=== PATIENT | female | born 1955 | race Caucasian/White ===

== ENCOUNTER 2018-06-22 16:15 | Observation (INO) ==
[2018-06-22] MEDS ORDERED: Morphine Sulfate Inj 2 MG/ML Vial IV.PUSH ONE (16:59)
[2018-06-22] MEDS ORDERED: Sod Chloride 0.9% Inj 1,000 ML IV.SIG SCH (17:00)
[2018-06-22] MEDS ORDERED: Acetaminophen 500 MG Tablet PO ONE (17:07)
--- NOTE | 2018-06-22 17:15 | ED ---
HPI General Chief Complaint: Fever Stated Complaint: fever/cancer pt Time Seen by Provider: 06/22/18 16:56 Source: patient Mode of arrival: ambulatory Limitations: no limitations History of Present Illness HPI Narrative: 63-year-old female patient with history of breast cancer status post mastectomy currently on chemotherapy with Dr. Small, presents to the ER today because she has not been feeling well, intermittent vomiting, was treated for dehydration about 5 days ago, here again because of a few days of left lower quadrant abdominal pains which she currently measures at a 5 out of 10, states it was a 10 out of 10 earlier. She denies any diarrhea, but also has been running fevers. She apparently was evaluated by [facility] yesterday, and had a endoscopy done by Dr. Levy last week, did not show any signs of acute processes. She was sent in by her physicians after trying a few over-the- counter outpatient medications for pain for further evaluation especially for fevers and possible neutropenia. Related Data Home Medications Medication Instructions Recorded Confirmed Gas-X 10 mg PO DIRECTED PRN 06/22/18 06/22/18 Librax (with clidinium) 1 tab PO ONCE PRN 06/22/18 06/22/18 Allergies Allergy/AdvReac Type Severity Reaction Status Date / Time tramadol Allergy Severe Swelling Verified 06/22/18 16:51 of Lip/Tongue/Throat scallops Allergy Intermediate N/V Verified 06/22/18 16:50 Review of Systems ROS: all other systems reviewed are negative [facility] Medical History Medical History Breast CA (Acute) Surgical History Surgical History History of left mastectomy (Acute) Social History Social History Substance History: No History of Abuse Smoking Status: Never smoker How Often Do You Have a Drink Containing Alcohol: Monthly or less Recent Travel in [facility] within the Last 8 Weeks: No Recent Out of Country Travel within the Last 8 Weeks: No Substance Abuse Detail Marijuana: Substance Use Status: Active Route Used Substance Abuse: By Mouth Substance Abuse Comment: Legally prescribed Immunization History Tetanus Immunization: >5 Years Hx Influenza Vaccine This Season: No Exam Narrative Exam Narrative: GENERAL: Well-developed middle age female patient currently in moderate distress. Awake and oriented 3. SKIN: Focused skin assessment warm/dry. HEAD: Atraumatic. Normocephalic. EYES: Pupils equal and round. No scleral icterus. No injection or drainage. ENT: No nasal bleeding or discharge. Mucous membranes pink and moist. NECK: Trachea midline. No JVD. CARDIOVASCULAR: Regular rate and rhythm. No murmur appreciated. RESPIRATORY: No accessory muscle use. Clear to auscultation. Breath sounds equal bilaterally. GASTROINTESTINAL: Abdomen soft, Left lower quadrant tenderness without guarding rebound, nondistended. Hepatic and splenic margins not palpable. MUSCULOSKELETAL: No obvious deformities. No clubbing. No cyanosis. No edema. NEUROLOGICAL: Awake and alert. No obvious cranial nerve deficits. Motor grossly within normal limits. Normal speech. PSYCHIATRIC: Appropriate mood and affect; insight and judgment normal. Course Initial Documented Vital Signs Temperature 100 F H 06/22/18 16:24 Pulse Rate 79 06/22/18 16:24 Respiratory Rate 20 06/22/18 16:24 Blood Pressure 122/58 L 06/22/18 16:24 Pulse Oximetry 97 06/22/18 16:24 Last Documented Vital Signs Temperature 100.6 F H 06/22/18 16:57 Pulse Rate 80 06/22/18 19:17 Respiratory Rate 18 06/22/18 19:17 Blood Pressure 104/53 L 06/22/18 19:17 Pulse Oximetry 97 06/22/18 19:17 Medical Decision Making MDM Narrative Medical decision making narrative: Patient is febrile in the ER. Her absolute neutrophil counts are fairly low. Patient has been given Tylenol, IV antibiotics after cultures were drawn. CAT scan was ordered for further evaluation of the abdominal pain. Metabolic panel is pending and CAT scan is pending. However, it is quite clear that she will need to be admitted. Case was discussed with Dr. Roberts for admission for further treatment. He states that the patient can be admitted to Dr. Lowe service. He will see the patient later on. Medical Screen Exam Complete: Yes Emergency Medical Condition: Yes Differential Diagnosis Differential Diagnosis: Sepsis versus neutropenic fever versus UTI versus pyelonephritis versus diverticulitis versus other acute intra-abdominal processes Lab Data Result diagrams: 06/22/18 17:40 Lab Results 06/22/18 06/22/18 06/22/18 Range/Units 17:40 17:40 17:50 WBC 1.1 L (4.0-11.0) th/mm3 RBC 2.87 L (4.00-5.30) mil/mm3 Hgb 8.8 L (11.6-15.3) gm/dL Hct 25.9 L (35.0-46.0) % MCV 90.1 (80.0-100.0) fL MCH 30.7 (27.0-34.0) pg MCHC 34.1 (32.0-36.0) % RDW 14.0 (11.6-17.2) % Plt Count 198 (150-450) th/mm3 MPV 9.1 (7.0-11.0) fL Prelim Diff (Auto) Slide review pending WBC Differential Manual diff final Seg Neuts % (Manual) 20 (16-70) % Band Neuts % (Manual) 3 (0-6) % Lymphocytes % (Manual) 40 (9-44) % Monocytes % (Manual) 28 H (0-8) % Eosinophils % (Manual) 1 (0-4) % Basophils % (Manual) 8 H (0-2) % Abs Neuts (Manual) 0.3 L* (1.8-7.7) th/mm3 Differential Comment . Platelet Estimate Normal (Normal) Platelet Morphology Normal (Normal) RBC Morphology Normal (Normal) Lactic Acid 1.0 (0.4-2.0) mmol/L Lipase 64 L (73-393) U/L Urine Color (Yellw/Straw) Urine Clarity (Clear) Urine pH (5.0-8.5) Ur Specific [place] (1.002-1.035) Urine Protein (Neg-Trace) mg/dL Urine Glucose (UA) (Negative) mg/dL Urine Ketones (Negative) mg/dL Urine Occult Blood (Negative) Urine Nitrate (Negative) Urine Bilirubin (Negative) Urine Urobilinogen (Less than 2) mg/dL Ur Leukocyte Esterase (Negative) Urine RBC (0-3) /hpf Urine WBC (0-5) /hpf Ur Squamous Epith Cells (0-5) /hpf Micro UA Comment Ur Microscopic Review Urine Culture Comments 06/22/18 Range/Units 18:45 WBC (4.0-11.0) th/mm3 RBC (4.00-5.30) mil/mm3 Hgb (11.6-15.3) gm/dL Hct (35.0-46.0) % MCV (80.0-100.0) fL MCH (27.0-34.0) pg MCHC (32.0-36.0) % RDW (11.6-17.2) % Plt Count (150-450) th/mm3 MPV (7.0-11.0) fL Prelim Diff (Auto) WBC Differential Seg Neuts % (Manual) (16-70) % Band Neuts % (Manual) (0-6) % Lymphocytes % (Manual) (9-44) % Monocytes % (Manual) (0-8) % Eosinophils % (Manual) (0-4) % Basophils % (Manual) (0-2) % Abs Neuts (Manual) (1.8-7.7) th/mm3 Differential Comment Platelet Estimate (Normal) Platelet Morphology (Normal) RBC Morphology (Normal) Lactic Acid (0.4-2.0) mmol/L Lipase (73-393) U/L Urine Color Straw (Yellw/Straw) Urine Clarity Clear (Clear) Urine pH 6.0 (5.0-8.5) Ur Specific [place] 1.003 (1.002-1.035) Urine Protein Negative (Neg-Trace) mg/dL Urine Glucose (UA) Negative (Negative) mg/dL Urine Ketones Negative (Negative) mg/dL Urine Occult Blood Small H (Negative) Urine Nitrate Negative (Negative) Urine Bilirubin Negative (Negative) Urine Urobilinogen Less than 2 (Less than 2) mg/dL Ur Leukocyte Esterase Negative (Negative) Urine RBC Less than 1 (0-3) /hpf Urine WBC 3 (0-5) /hpf Ur Squamous Epith Cells <1 (0-5) /hpf Micro UA Comment Culture not ind Ur Microscopic Review Not Reportable Urine Culture Comments Culture not ind Imaging Data Attestation: I personally reviewed and interpreted this imaging study as follows : Radiologist's impression: Chest X-Ray 06/22/18 16:57 CONCLUSION: No acute disease Discharge Plan Discharge Disposition Patient Disposition: 30 Still Patient Discharge Condition Condition: Stable Discharge Details Anticipated Discharge Date: 06/22/18 Diagnosis: Neutropenic fever Physicians Team ED Provider: Macarena Singletary Primary Care Provider: Titi Vargas Attending Provider: Raymond Lowe Discharge Interventions Interventions: Vital Signs Last Done: 06/22/18 16:57 Status ED Status: Admitted Patient
--- NOTE | 2018-06-22 17:15 | XR ---
EXAM DATE: 06/22/2018 5:11 PM EDT AGE/SEX: 63 years / Female INDICATIONS: Fever, chest pain low anterior left side CLINICAL DATA: This is the patient's initial encounter. Patient reports that signs and symptoms have been present for 1 day and indicates a pain score of 4/10. MEDICAL/SURGICAL HISTORY: Carcinoma, breast. Nephrectomy, left. Infusaport COMPARISON: TLI, XR CHEST FRONTAL, SINGLE VIEW, 05/05/2018. . FINDINGS: Right chest port is stable in good position. Lungs are focally clear. No pleural effusion evident. Ca rdiac contours are satisfactory. Left breast implant/tissue clinical interviewer present. CONCLUSION: No acute disease Electronically signed by: Carmine George MD 06/22/2018 5:14 PM EDT
[2018-06-22 18:09] LABS: Hematocrit 25.9 % (35.0-46.0); Hemoglobin 8.8 gm/dL (11.6-15.3); Mean Corpuscular HGB Conc 34.1 % (32.0-36.0); Mean Corpuscular Hemoglobin 30.7 pg (27.0-34.0); Mean Corpuscular Volume 90.1 fL (80.0-100.0); Mean Platelet Volume 9.1 fL (7.0-11.0); Platelet Count 198 th/mm3 (150-450); Red Blood Count 2.87 mil/mm3 (4.00-5.30); White Blood Count 1.1 th/mm3 (4.0-11.0)
[2018-06-22 19:28] LABS: Bilirubin,Urine Negative (Negative); Clarity,Urine Clear (Clear); Color,Urine Straw (Yellw/Straw); Glucose,Urine (UA) Negative (Negative); Leukocyte Esterase,Urine Negative (Negative); Nitrite,Urine Negative (Negative); Specific Gravity,Urine 1.003 (1.002-1.035); Squamous Epithelial Cell,Urine <1 /hpf (0-5)
[2018-06-22 19:30] LABS: Eosinophils 1 % (0-4); Lymphocytes 40 % (9-44); Monocytes 28 % (0-8)
[2018-06-22 19:31] LABS: Platelet Estimate Normal (Normal); Platelet Morphology Normal (Normal); RBC Morphology Normal (Normal)
[2018-06-22 20:05] LABS: Albumin 3.3 g/dL (3.4-5.0); Anion Gap 11 meq/L (5-15); Aspartate Aminotransferase 10 U/L (15-37); Blood Urea Nitrogen 7 mg/dL (7-18); Calcium 8.7 mg/dL (8.5-10.1); Carbon Dioxide 24.4 meq/L (21.0-32.0); Chloride 102 meq/L (98-107); Glomerular Filtration Rate Greater Than 89 mL/min (>89); Glucose,Random 99 mg/dL (74-106); Potassium 3.7 meq/L (3.5-5.1); Sodium 137 meq/L (136-145)
[2018-06-22 20:06] LABS: Alanine Aminotransferase 18 U/L (10-53)
[2018-06-22 20:08] LABS: Alkaline Phosphatase 118 U/L (45-117); Total Protein 6.5 g/dL (6.4-8.2)
[2018-06-22] MEDS ORDERED: LORazepam 0.5 MG Tablet PO PRN (20:32)
--- NOTE | 2018-06-22 20:46 | P.HP ---
History of Present Illness Service: [facility] adult med Primary Care Physician: Titi Vargas MD Chief Complaint: fever, chills, malaise History of Present Illness: Pleasant 63-year-old female diagnosed with breast cancer in March of this year who is status post left-sided mastectomy and currently undergoing chemotherapy presents to the ER reportedly under the advisement of her oncologist due to low- grade fevers at home and risk for neutropenic fever. Patient reports that her last chemotherapy was approximately 1 week ago and that she typically bounces back from her malaise within 2-3 days however she has continued to feel bad all week. She reports that she has had left lower to mid abdominal pain over the last day and a half. This is quite tender to palpation per her report. Denies any trauma to the area. No rash in the area. She started noticing some chills last night and had a temperature of 99.9 orally at home today. It is additionally noted that she underwent EGD with esophageal dilatation 1 day prior to her chemotherapy last week. Her last bowel movement was this morning and was normal per her report. She has had intermittent nausea and vomiting over the last week. Her last episode of vomiting was 2 days ago. Denies any hematemesis. She reports that she does feel hungry and thirsty but is somewhat nauseated so has not been eating or drinking much. Her ANC on ER labs is 0.3 with a total white count of 1. Temp is 100.6 orally. Lactic acid is normal. She has been started on cefepime and CT scan abdomen pelvis is pending. SH Lives with her of 36 years Owns a local preschool Born and raised in the area No tobacco except for occasional cigarette when she was a young college student Rare to occasional alcohol use No illicit drug use Has 5 adult children, 4 boys and one girl - Diagnosis (1) Neutropenic fever (2) Breast cancer in female Inpatient Certification: I certify that the inpatient services were ordered in accordance with Medicare regulations governing the order. This includes certification that hospital inpatient services are reasonable and necessary and in the case of services not specified as inpatient-only under 42 CFR 419.22(n), that they are appropriately provided as inpatient services in accordance to with the 2-midnight benchmark under 43 CFR 412.3(e) Review of Systems Constitutional: Reports body ache(s), Reports chills, Reports fatigue, Reports fever(s), Reports lack of energy, Reports malaise, Reports weakness, Reports weight loss Eyes: Reports discharge, Reports sensitivity to light Comments: She has noted intermittent photophobia since she started on her chemotherapy Ears, Nose, Mouth, and Throat: Reports difficulty swallowing, Reports dry mouth Cardiovascular: Denies chest pain, Denies chest pain at rest, Denies chest pain with activity, Denies excessive sweating, Denies fainting, Denies fast heart rate, Denies foot swelling, Denies generalized swelling, Denies irregular heart rhythm, Denies leg pain with activity, Denies leg sores, Denies leg swelling, Denies lightheadedness, Denies radiating jaw, neck or arm pain, Denies rapid, pounding, or irregular heartbeat, Denies shortness of breath, Denies shortness of breath with activity, Denies shortness of breath when lying down, Denies shortness of breath causing sudden awakening, Denies slow heart rate, Denies other Respiratory: Denies change in phlegm color, Denies chest congestion, Denies cough, Denies coughing up blood, Denies excessive phlegm production, Denies pain on inspiration, Denies pain with cough, Denies shortness of breath, Denies shortness of breath with activity, Denies snoring, Denies stridor, Denies wheezing, Denies other Gastrointestinal: Reports abdominal pain, Reports change in bowel habits, Reports difficulty swallowing Musculoskeletal: Reports body aches PMFSH - History History Provided By: Patient - Medical History Medical History: Medical History (Last Reviewed 06/22/18 @ 17:14 by Macarena Singletary MD) Breast CA - Surgical History Surgical History: Surgical History (Last Reviewed 06/22/18 @ 17:14 by Macarena Singletary MD) History of left mastectomy - Family History Family History: Family History (Last Updated 06/22/18 @ 20:40 by Jesus Roberts MD, PhD) Other Leukemia - Tobacco History Second Hand Smoke Exposure: No Tobacco Use In Past 30 Days: No Smoking Status: Former smoker Years Smoked: 3 Number of Pack Years (if former smoker): 1 Smoking End Date: appx 1979 - Alcohol History How Often Do You Have a Drink Containing Alcohol: Monthly or less - Substance Use History Substance History: No History of Abuse - Substance Use Type Marijuana Status: Active Route Used: By Mouth Comment: Legally prescribed - Travel History Recent Travel in the [place] Within the Last 8 Weeks: No Recent Travel Out of the Country Within the Last 8 Weeks: No - Immunization History Tetanus Immunization: >5 Years Hx Influenza Vaccine This Season: No Medications and Allergies Active Medications: Active Medications Sodium Chloride (Ns Inj) 1,000 mls @ 0 mls/hr IV.SIG BOLUS MAJOR Sodium Chloride (Ns Flush) 2 ml IV.FLUSH PRN PRN PRN Reason: FLUSH AFTER USING IV ACCESS Allergies Allergy/AdvReac Type Severity Reaction Status Date / Time tramadol Allergy Severe Swelling Verified 06/22/18 16:51 of Lip/Tongue/Throat scallops Allergy Intermediate N/V Verified 06/22/18 16:50 Home Medications Medication Instructions Recorded Confirmed Type Gas-X 10 mg PO DIRECTED PRN 06/22/18 06/22/18 History Librax (with clidinium) 1 tab PO ONCE PRN 06/22/18 06/22/18 History Exam Vital signs: Vital Signs 06/22/18 16:24 06/22/18 16:51 06/22/18 16:57 Temperature 100 F H 100.6 F H Pulse Rate 79 82 Respiratory Rate 20 16 Blood Pressure 122/58 L Pulse Oximetry 97 97 06/22/18 19:17 Temperature Pulse Rate 80 Respiratory Rate 18 Blood Pressure 104/53 L Pulse Oximetry 97 Intake & Output 06/22/18 06/22/18 06/23/18 06:59 18:59 06:59 Weight 80.739 kg Narrative: GENERAL: No acute distress, pleasant, alert and oriented. SKIN: Warm and dry. Port right upper chest, postsurgical scarring left chest wall and axilla HEAD: Atraumatic. Normocephalic. EYES: Pupils equal and round. No scleral icterus. No injection or drainage. ENT: No nasal bleeding or discharge. Mucous membranes pink and moist. NECK: Trachea midline. No JVD. CARDIOVASCULAR: Regular rate and rhythm. No significant murmur appreciated RESPIRATORY: No accessory muscle use. Clear to auscultation. Breath sounds equal bilaterally. GASTROINTESTINAL: Abdomen soft, nondistended. Patient noted in left mid to lower abdomen with voluntary guarding. No rebound. Bowel sounds slightly hypoactive. MUSCULOSKELETAL: Extremities without clubbing, cyanosis, or edema. No obvious deformities. NEUROLOGICAL: Awake and alert. No obvious cranial nerve deficits. Motor grossly within normal limits. Five out of 5 muscle strength in the arms and legs. Normal speech. PSYCHIATRIC: Appropriate mood and affect; insight and judgment normal. Results - Labs CBC & Chem 7: 06/22/18 17:40 06/22/18 17:40 Labs: Laboratory Results - last 24 hr 06/22/18 06/22/18 06/22/18 17:40 17:40 17:40 WBC 1.1 L RBC 2.87 L Hgb 8.8 L Hct 25.9 L MCV 90.1 MCH 30.7 MCHC 34.1 RDW 14.0 Plt Count 198 MPV 9.1 Prelim Diff (Auto) Slide review pending WBC Differential Manual diff final Seg Neuts % (Manual) 20 Band Neuts % (Manual) 3 Lymphocytes % (Manual) 40 Monocytes % (Manual) 28 H Eosinophils % (Manual) 1 Basophils % (Manual) 8 H Abs Neuts (Manual) 0.3 L* Differential Comment . Platelet Estimate Normal Platelet Morphology Normal RBC Morphology Normal Sodium 137 Potassium 3.7 Chloride 102 Carbon Dioxide 24.4 Anion Gap 11 BUN 7 Creatinine 0.66 Estimated GFR Greater than 89 Random Glucose 99 Lactic Acid Calcium 8.7 Total Bilirubin 0.3 AST 10 L ALT 18 Alkaline Phosphatase 118 H Total Protein 6.5 Albumin 3.3 L Lipase 64 L Urine Color Urine Clarity Urine pH Ur Specific [place] Urine Protein Urine Glucose (UA) Urine Ketones Urine Occult Blood Urine Nitrate Urine Bilirubin Urine Urobilinogen Ur Leukocyte Esterase Urine RBC Urine WBC Ur Squamous Epith Cells Micro UA Comment Ur Microscopic Review Urine Culture Comments 06/22/18 06/22/18 17:50 18:45 WBC RBC Hgb Hct MCV MCH MCHC RDW Plt Count MPV Prelim Diff (Auto) WBC Differential Seg Neuts % (Manual) Band Neuts % (Manual) Lymphocytes % (Manual) Monocytes % (Manual) Eosinophils % (Manual) Basophils % (Manual) Abs Neuts (Manual) Differential Comment Platelet Estimate Platelet Morphology RBC Morphology Sodium Potassium Chloride Carbon Dioxide Anion Gap BUN Creatinine Estimated GFR Random Glucose Lactic Acid 1.0 Calcium Total Bilirubin AST ALT Alkaline Phosphatase Total Protein Albumin Lipase Urine Color Straw Urine Clarity Clear Urine pH 6.0 Ur Specific [place] 1.003 Urine Protein Negative Urine Glucose (UA) Negative Urine Ketones Negative Urine Occult Blood Small H Urine Nitrate Negative Urine Bilirubin Negative Urine Urobilinogen Less than 2 Ur Leukocyte Esterase Negative Urine RBC Less than 1 Urine WBC 3 Ur Squamous Epith Cells <1 Micro UA Comment Culture not ind Ur Microscopic Review Not Reportable Urine Culture Comments Culture not ind - Imaging Impressions Chest X-Ray 06/22/18 16:57 CONCLUSION: No acute disease Caprini VTE Risk Assessment Caprini VTE Risk Assessment: Moderate/High Risk (score >= 2) Caprini Risk Assessment Model: Point Value = 1 Point Value = 2 Point Value = 3 Point Value = 5 Age 41-60 Minor surgery BMI > 25 kg/m2 Swollen legs Varicose veins or History of unexplained or recurrent spontaneous Oral contraceptives or hormone replacement Sepsis (< 1 month) Serious lung disease, including pneumonia (< 1 month) Abnormal pulmonary function Acute myocardial infarction Congestive heart failure (< 1 month) History of inflammatory bowel disease Medical patient at bed rest Age 61-74 Arthroscopic surgery Major open surgery (> 45 min) Laparoscopic surgery (> 45 min) Malignancy Confined to bed (> 72 hours) Immobilizing plaster cast Central venous access Age >= 75 History of VTE Family history of VTE Factor V Leiden Prothrombin [id number] Lupus anticoagulant Anticardiolipin antibodies Elevated serum homocysteine Heparin-induced thrombocytopenia Other congenital or acquired thrombophilia Stroke (< 1 month) Elective arthroplasty Hip, pelvis, or leg fracture Acute spinal cord injury (< 1 month) Prophylaxis Regimen: Total Risk Factor Score Risk Level Prophylaxis Regimen 0-1 Low Early ambulation 2 Moderate Order ONE of the following: *Sequential Compression Device (SCD) *Heparin 5000 units SQ BID 3-4 Higher Order ONE of the following medications: *Heparin 5000 units SQ TID *Enoxaparin/Lovenox 40 mg SQ daily (WT < 150 kg, CrCl > 30 mL/min) *Enoxaparin/Lovenox 30 mg SQ daily (WT < 150 kg, CrCl > 10-29 mL/min) *Enoxaparin/Lovenox 30 mg SQ BID (WT < 150 kg, CrCl > 30 mL/min) AND/OR *Sequential Compression Device (SCD) 5 or more Highest Order ONE of the following medications: *Heparin 5000 units SQ TID (Preferred with Epidurals) *Enoxaparin/Lovenox 40 mg SQ daily (WT < 150 kg, CrCl > 30 mL/min) *Enoxaparin/Lovenox 30 mg SQ daily (WT < 150 kg, CrCl > 10-29 mL/min) *Enoxaparin/Lovenox 30 mg SQ BID (WT < 150 kg, CrCl > 30 mL/min) AND *Sequential Compression Device (SCD) Assessment and Plan - Assessment (1) Neutropenic fever Code(s): D70.9 - Neutropenia, unspecified; R50.81 - Fever presenting with conditions classified elsewhere Status: Acute Plan: Questionable source. Continue on cefepime for now. Patient appears somewhat ill but not severely septic. CT pending. Provide IV fluids, Zofran and pain medication as needed (2) Breast cancer in female Code(s): C50.919 - Malignant neoplasm of unspecified site of unspecified female breast Status: Acute Plan: Continue with outpatient oncology. We will not place formal consult oncology unless patient does not improve the current plan of therapy. - Plan Code Status: full Discussed Condition With: Pt, her and ER provider (2) Breast cancer in female Qualifiers: Laterality: left
[2018-06-22] MEDS ORDERED: Morphine Sulfate Inj 2 MG/ML Vial IV.PUSH PRN (20:47)
--- NOTE | 2018-06-22 20:49 | CT ---
EXAM DATE: 06/22/2018 8:34 PM EDT AGE/SEX: 63 years / Female INDICATIONS: Left lower quadrant pain. CLINICAL DATA: This is the patient's initial encounter. Patient reports that signs and symptoms have been present for 1 day and indicates a pain score of 3/10. MEDICAL/SURGICAL HISTORY: Carcinoma, breast. Mastectomy, left. ORAL CONTRAST: No oral contrast ingested. RADIATION DOSE: 10.36 CTDI (mGy) COMPARISON: No prior exams available for comparison. TECHNIQUE: Multiple contiguous axial images were obtained through the abdomen and pelvis following b olus infusion of 70 ml Omnipaque 350 (iohexol) nonionic water-soluble contrast as a single exam dos e. No oral contrast ingested. Using automated exposure control and adjustment of the mA and/or kV ac cording to patient size, radiation dose was kept as low as reasonably achievable to obtain optimal di agnostic quality images. DICOM format image data is available electronically for review and comparis on. FINDINGS: Lower Lungs: The visualized lower lungs are clear. Liver: The liver has a homogeneous density without space-occupying lesion. There is no dilation of th e biliary tree. No calcified gallstones. Spleen: Homogeneous density without enlargement. Pancreas: Unremarkable without mass or calcification. Kidneys: Normal in size and shape. No evidence of mass or hydronephrosis. 1 cm cyst in the cortex of the lateral right mid kidney. Adrenal Glands: Unremarkable. Aorta: The aorta and proximal iliac vessels are grossly unremarkable without aneurysmal dilation. Bowel/Mesentery: Abnormal. There is prominent induration about the proximal sigmoid colon in this se gment which measures approximately 7 cm in length. There are multiple diverticula in the sigmoid colo n and the findings suggest diverticulitis without evidence of extraluminal gas or focal free fluid. T here is mild free fluid layering in the dependent pelvis. No dilated loops of small bowel. Abdominal Wall: Intact. Retroperitoneum: No evidence of adenopathy in the retrocrural, para-aortic, or deep pelvic regions. Bladder: Contours are smooth. Reproductive Organs: No abnormal masses or calcifications seen. Inguinal: The inguinal region is unremarkable without evidence of adenopathy. Bony Structures: Unremarkable. CONCLUSION: 1. Findings characteristic of diverticulitis of the proximal sigmoid colon with prominent area of in duration of the fat about the sigmoid, but no drainable fluid collections. Electronically signed by: Joe Adair MD 06/22/2018 8:48 PM EDT
[2018-06-23] MEDS: Sod Chloride 0.9% Inj 1,000 ML IV.CONT SCH ×3 (00:46→16:17)
[2018-06-23] MEDS: Levofloxacin 500 mg Premix Inj 500 MG/100 ML PIGGYBACK IV.SIG SCH (05:50)
[2018-06-23 08:57] LABS: Albumin 2.8 g/dL (3.4-5.0); Anion Gap 9 meq/L (5-15); Aspartate Aminotransferase 12 U/L (15-37); Blood Urea Nitrogen 7 mg/dL (7-18); Calcium 8.2 mg/dL (8.5-10.1); Carbon Dioxide 22.8 meq/L (21.0-32.0); Chloride 109 meq/L (98-107); Glomerular Filtration Rate Greater Than 89 mL/min (>89); Glucose,Random 95 mg/dL (74-106); Potassium 3.6 meq/L (3.5-5.1); Sodium 141 meq/L (136-145)
[2018-06-23 08:58] LABS: Alanine Aminotransferase 15 U/L (10-53)
[2018-06-23 09:01] LABS: Alkaline Phosphatase 103 U/L (45-117); Total Protein 5.9 g/dL (6.4-8.2)
[2018-06-23 09:02] LABS: Hematocrit 25.1 % (35.0-46.0); Hemoglobin 8.5 gm/dL (11.6-15.3); Mean Corpuscular HGB Conc 33.9 % (32.0-36.0); Mean Corpuscular Hemoglobin 30.8 pg (27.0-34.0); Mean Corpuscular Volume 90.9 fL (80.0-100.0); Mean Platelet Volume 9.3 fL (7.0-11.0); Platelet Count 163 th/mm3 (150-450); Red Blood Count 2.76 mil/mm3 (4.00-5.30); Red Cell Distribution Width 14.1 % (11.6-17.2); White Blood Count 1.9 th/mm3 (4.0-11.0)
--- NOTE | 2018-06-23 09:09 | P.PNIM ---
Subjective Interval history: pt still has pain/tenderness left lower quadrant. some diarrhea this AM. Physical Exam Vital signs: Vital Signs 06/22/18 16:24 06/22/18 16:51 06/22/18 16:57 Temperature 100 F H 100.6 F H Pulse Rate 79 82 Respiratory Rate 20 16 Blood Pressure 122/58 L Pulse Oximetry 97 97 06/22/18 19:17 06/22/18 22:10 06/23/18 04:00 Temperature 101.0 F H 99.8 F H Pulse Rate 80 77 80 Respiratory Rate 18 18 18 Blood Pressure 104/53 L 120/57 L 109/59 L Pulse Oximetry 97 98 97 06/23/18 08:00 Temperature 99.3 F Pulse Rate 78 Respiratory Rate 16 Blood Pressure 101/52 L Pulse Oximetry 97 Intake & Output 06/22/18 06/23/18 06/23/18 18:59 06:59 18:59 Intake Total 780 / 780 100 / 100 Balance 780 / 780 100 / 100 Weight 80.739 kg 80.739 kg Intake: IV 200 / 200 100 / 100 Maxipime Inj 2,000 MG In NS Inj 100 / 100 100 ML @ 200 mls/hr IV.SIG Q8H MAJOR Rx#:[id number] Levaquin 500 mg Premix Inj 500 100 / 100 mg In 100 ml @ 100 mls/hr IV. SIG Q24H MAJOR Rx#:[id number] Flagyl 500 MG Inj 100 ML @ 100 100 / 100 mls/hr IV.SIG Q8H MAJOR Rx#: [id number] Oral 580 / 580 Other: # Voids 2 Date of Last Bowel Movement 06/22/18 Weight On Admission 80.739 kg nad heart reg lung cta abd s/bs/llq tenderness ext no edema Results - Labs CBC & Chem 7: 06/22/18 17:40 06/23/18 07:30 Laboratory Results - last 24 hr 06/22/18 06/22/18 06/22/18 17:40 17:40 17:40 WBC 1.1 L RBC 2.87 L Hgb 8.8 L Hct 25.9 L MCV 90.1 MCH 30.7 MCHC 34.1 RDW 14.0 Plt Count 198 MPV 9.1 Prelim Diff (Auto) Slide review pending WBC Differential Manual diff final Seg Neuts % (Manual) 20 Band Neuts % (Manual) 3 Lymphocytes % (Manual) 40 Monocytes % (Manual) 28 H Eosinophils % (Manual) 1 Basophils % (Manual) 8 H Abs Neuts (Manual) 0.3 L* Differential Comment . Platelet Estimate Normal Platelet Morphology Normal RBC Morphology Normal Sodium 137 Potassium 3.7 Chloride 102 Carbon Dioxide 24.4 Anion Gap 11 BUN 7 Creatinine 0.66 Estimated GFR Greater than 89 Random Glucose 99 Lactic Acid Calcium 8.7 Total Bilirubin 0.3 AST 10 L ALT 18 Alkaline Phosphatase 118 H Total Protein 6.5 Albumin 3.3 L Lipase 64 L Urine Color Urine Clarity Urine pH Ur Specific [place] Urine Protein Urine Glucose (UA) Urine Ketones Urine Occult Blood Urine Nitrate Urine Bilirubin Urine Urobilinogen Ur Leukocyte Esterase Urine RBC Urine WBC Ur Squamous Epith Cells Micro UA Comment Ur Microscopic Review Urine Culture Comments 06/22/18 06/22/18 06/23/18 17:50 18:45 07:30 WBC RBC Hgb Hct MCV MCH MCHC RDW Plt Count MPV Prelim Diff (Auto) WBC Differential Seg Neuts % (Manual) Band Neuts % (Manual) Lymphocytes % (Manual) Monocytes % (Manual) Eosinophils % (Manual) Basophils % (Manual) Abs Neuts (Manual) Differential Comment Platelet Estimate Platelet Morphology RBC Morphology Sodium 141 Potassium 3.6 Chloride 109 H Carbon Dioxide 22.8 Anion Gap 9 BUN 7 Creatinine 0.65 Estimated GFR Greater than 89 Random Glucose 95 Lactic Acid 1.0 Calcium 8.2 L Total Bilirubin 0.2 AST 12 L ALT 15 Alkaline Phosphatase 103 Total Protein 5.9 L D Albumin 2.8 L Lipase Urine Color Straw Urine Clarity Clear Urine pH 6.0 Ur Specific [place] 1.003 Urine Protein Negative Urine Glucose (UA) Negative Urine Ketones Negative Urine Occult Blood Small H Urine Nitrate Negative Urine Bilirubin Negative Urine Urobilinogen Less than 2 Ur Leukocyte Esterase Negative Urine RBC Less than 1 Urine WBC 3 Ur Squamous Epith Cells <1 Micro UA Comment Culture not ind Ur Microscopic Review Not Reportable Urine Culture Comments Culture not ind - Imaging Impressions Abdomen/Pelvis CT 06/22/18 16:56 CONCLUSION: 1. Findings characteristic of diverticulitis of the proximal sigmoid colon with prominent area of induration of the fat about the sigmoid, but no drainable fluid collections. Chest X-Ray 06/22/18 16:57 CONCLUSION: No acute disease Assessment and Plan - Assessment (1) Diverticulitis Code(s): K57.92 - Diverticulitis of intestine, part unspecified, without perforation or abscess without bleeding Status: Acute Plan: 1. breast cancer undergoing chemotherapy. on third cycle. 2. neutropenic fever. 3. diverticulitis Pt undergoing chemotherapy and now presents with neutropenic fever and left lower quadrant pain and diarrhea. CT evaluation shows evidence for sigmoid diverticulosis and therefore the concern is for diverticulitis with stranding and inflammatory bowel change in this location. discussed with her oncologist Dr Geraldine Small. We will move her to oncology floor. neutropenic precautions ivf and liquid diet for now cont levaquin/flagyl. monitor her pain and fever. dvt prophylaxis. (2) Neutropenic fever Code(s): D70.9 - Neutropenia, unspecified; R50.81 - Fever presenting with conditions classified elsewhere Status: Acute (3) Breast cancer in female Code(s): C50.919 - Malignant neoplasm of unspecified site of unspecified female breast Status: Acute (3) Breast cancer in female Qualifiers: Laterality: left
[2018-06-23 10:25] LABS: Lymphocytes 36 % (9-44); Metamyelocytes 1 % (0-1); Monocytes 10 % (0-8); Myelocytes 2 % (0-0); Promyelocyte 1 % (0-0); Toxic Granulation 2+
[2018-06-23 10:26] LABS: Dohle Bodies Present; Platelet Estimate Normal (Normal); Platelet Morphology Normal (Normal)
[2018-06-23] MEDS ORDERED: Acetaminophen 325 MG Tablet PO PRN (14:53)
--- NOTE | 2018-06-23 19:11 | MB ---
cc: Geraldine Small MD,Raymond Miller MD DATE: 06/23/2018 REFERRING PHYSICIAN: Raymond Lowe MD CHIEF COMPLAINT: Dr. Lowe requested consultation for Mrs. Zhong regarding history of breast cancer associated with neutropenic fever on adjuvant therapy. HISTORY OF PRESENT ILLNESS: Mrs. Zhong is a 63-year-old woman with no significant past history. She presented with an abnormality in the left breast. She is diagnosed with a stage IIA, T2 N0 M0, poorly differentiated ductal carcinoma with high risk Oncotype DX recurrence score. She is receiving adjuvant systemic chemotherapy. Her last cycle of Adriamycin and Cytoxan was from 06/14/2018. Her course was complicated by severe dysphagia secondary to esophageal stricture. She was treated by Dr. Levy prior to her last cycle of chemotherapy. She describes having some abdominal discomfort during her [employer] visit yesterday. She developed fevers. She was advised to go into the emergency room. She was found to have neutropenia. Her ANC on admission was 300. Her white count was 1.1, hemoglobin 8.8, platelet count 198. She had pain in the left lower quadrant. Imaging study included CT scan of the abdomen and pelvis on 06/22/2018 showed characteristics of diverticulitis of the proximal sigmoid colon with prominent area of induration about the sigmoid. There is no fluid collection to suggest an abscess. She was started on antibiotic therapy. On the morning after admission, she was afebrile. Her blood pressure is stable. REVIEW OF SYSTEMS: She was doing well in terms of nausea. She was fatigued. She was not feeling right immediately prior to coming in. She had abdominal pain, which began just before her admission. She denies any changes in bowel habits. No urinary complaints. She denies any headaches or vision changes. The rest of the review of systems is negative. PAST MEDICAL HISTORY: Significant for nephrolithiasis, high-risk ER positive left breast cancer. History of esophageal stricture. PAST SURGICAL HISTORY: 1. Left breast nipple-sparing mastectomy and sentinel node biopsy. 2. Left breast mass biopsy. 3. Colonoscopy. 4. Upper endoscopy and esophageal stricture dilatation. ALLERGIES: TORADOL. CURRENT MEDICATIONS: 1. Tylenol. 2. Comstock. 3. Levaquin. 4. Ativan. 5. Flagyl. 6. Zofran. 7. Cefepime was discontinued. FAMILY HISTORY: No significant family history of cancer. SOCIAL HISTORY: She is , never smoked. She drinks alcohol socially. 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 PHYSICAL EXAMINATION: VITAL SIGNS: Temperature 98.8, heart rate 68, respiratory rate 16, blood pressure 100/58, saturation 97%. GENERAL: Mrs. Zhong is a well-developed, well-nourished, pleasant woman in no acute distress. She has alopecia. She looks rested. HEENT: Her pupils are round, reactive to light and accommodation. Oropharynx is clear with no oral mucositis. NECK: Supple, no adenopathy. LUNGS: Clear. CARDIOVASCULAR: Reveals normal rate and rhythm. ABDOMEN: With tenderness diffusely in the left lower quadrant. EXTREMITIES: No edema. NEUROLOGIC: Nonfocal. LABORATORY DATA: As described above. ASSESSMENT AND PLAN: Mrs. Zhong is a 63-year-old woman with high-risk ER positive stage IIA, T2 N0 M0 left breast cancer with high risk Oncotype DX recurrence score. She is receiving adjuvant systemic chemotherapy. She is admitted for neutropenic fever. I had a lengthy discussion with Mrs. Zhong, her diagnosis of neutropenic fever. We discussed the source and etiology is probably diverticulosis in the sigmoid colon. She had more abrupt symptoms. She received GCSF support. Despite this, however, she was neutropenic. I anticipate her neutropenia to be short-lived. The ER was called to start her on empiric antibiotic therapy with cefepime. Her neutropenia was resolving at the time of the consultation. Antibiotic regimen was switched to more specific for her diverticulitis. We discussed continuing her on a liquid diet/bowel rest. We will transfer her to oncology floor. Continue support. Her questions were answered to her satisfaction. Her case was discussed with Dr. Lowe. MD KEITH Jefferson/david , 05:39 PM , 05:52 PM
[2018-06-24] MEDS: Levofloxacin 500 mg Premix Inj 500 MG/100 ML PIGGYBACK IV.SIG SCH (04:55)
[2018-06-24] MEDS: Sod Chloride 0.9% Inj 1,000 ML IV.CONT SCH ×2 (04:56→18:27)
[2018-06-24 05:59] LABS: Hematocrit 24.8 % (35.0-46.0); Hemoglobin 8.3 gm/dL (11.6-15.3); Mean Corpuscular HGB Conc 33.6 % (32.0-36.0); Mean Corpuscular Hemoglobin 30.8 pg (27.0-34.0); Mean Corpuscular Volume 91.9 fL (80.0-100.0); Mean Platelet Volume 9.5 fL (7.0-11.0); Platelet Count 146 th/mm3 (150-450); Red Cell Distribution Width 14.2 % (11.6-17.2); White Blood Count 3.4 th/mm3 (4.0-11.0)
[2018-06-24 06:09] LABS: Alanine Aminotransferase 14 U/L (10-53); Albumin 2.6 g/dL (3.4-5.0); Anion Gap 8 meq/L (5-15); Aspartate Aminotransferase 9 U/L (15-37); Blood Urea Nitrogen 4 mg/dL (7-18); Carbon Dioxide 23.7 meq/L (21.0-32.0); Chloride 113 meq/L (98-107); Glomerular Filtration Rate 86 mL/min (>89); Glucose,Random 87 mg/dL (74-106); Potassium 3.2 meq/L (3.5-5.1); Sodium 145 meq/L (136-145)
[2018-06-24 06:12] LABS: Alkaline Phosphatase 97 U/L (45-117); Total Protein 5.8 g/dL (6.4-8.2)
[2018-06-24 07:46] LABS: Eosinophils 3 % (0-4); Lymphocytes 20 % (9-44); Monocytes 12 % (0-8); Myelocytes 7 % (0-0); Platelet Morphology Normal (Normal); Promyelocyte 1 % (0-0)
--- NOTE | 2018-06-24 08:19 | P.PNIM ---
Subjective Interval history: eager for dc alot of diarrhea yesterday(green) after "salty soup" abdomen pain dropped from 08/09 to 11/09...not using pain meds. ambulating Physical Exam Vital signs: Vital Signs 06/23/18 12:00 06/23/18 16:00 06/23/18 17:40 Temperature 99.0 F 98.8 F 98.6 F Pulse Rate 73 68 68 Respiratory Rate 16 16 18 Blood Pressure 97/55 L 100/58 L 122/66 Pulse Oximetry 96 97 98 06/23/18 20:00 06/24/18 00:00 06/24/18 04:00 Temperature 98.0 F 98.2 F 98.3 F Pulse Rate 70 66 74 Respiratory Rate 18 16 18 Blood Pressure 126/69 97/55 L 109/66 Pulse Oximetry 100 97 96 Intake & Output 06/23/18 06/24/18 06/24/18 18:59 06:59 18:59 Intake Total 2920 / 2920 1200 / 1200 Output Total 200 / 200 Balance 2720 / 2720 1200 / 1200 Intake: IV 2200 / 2200 1200 / 1200 NS Inj 1,000 ML @ 100 mls/hr IV 2000 / 2000 1000 / 1000 .CONT .Q10H MAJOR Rx#:[id number] Levaquin 500 mg Premix Inj 500 100 / 100 mg In 100 ml @ 100 mls/hr IV. SIG Q24H MAJOR Rx#:[id number] Flagyl 500 MG Inj 100 ML @ 100 200 / 200 100 / 100 mls/hr IV.SIG Q8H MAJOR Rx#: [id number] Oral 720 / 720 Output: Urine 200 / 200 Other: # Voids 3 Date of Last Bowel Movement 06/23/18 06/23/18 # Bowel Movements 2 # Incontinent Bowel Movements 3 nad heart reg lung cta abd s/nd/bs. minimal tenderness llq ext no edema Results - Labs CBC & Chem 7: 06/24/18 05:00 06/24/18 05:00 Laboratory Results - last 24 hr 06/23/18 06/23/18 06/23/18 07:30 07:30 19:30 WBC 1.9 L D RBC 2.76 L Hgb 8.5 L Hct 25.1 L MCV 90.9 MCH 30.8 MCHC 33.9 RDW 14.1 Plt Count 163 MPV 9.3 Prelim Diff (Auto) Manual diff required WBC Differential Manual diff final Seg Neuts % (Manual) 26 Band Neuts % (Manual) 19 H Lymphocytes % (Manual) 36 Monocytes % (Manual) 10 H Eosinophils % (Manual) Basophils % (Manual) 5 H Metamyelocytes % (Man) 1 Myelocytes % (Man) 2 H Promyelocytes % (Man) 1 H Abs Neuts (Manual) 0.9 L Differential Comment . Toxic Granulation 2+ H Dohle Bodies Present H Platelet Estimate Normal Platelet Morphology Normal Sodium 141 Potassium 3.6 Chloride 109 H Carbon Dioxide 22.8 Anion Gap 9 BUN 7 Creatinine 0.65 Estimated GFR Greater than 89 Random Glucose 95 Calcium 8.2 L Total Bilirubin 0.2 AST 12 L ALT 15 Alkaline Phosphatase 103 Total Protein 5.9 L D Albumin 2.8 L Stl C.difficile Tox PCR Negative St C. diff Tox Epid 027 Negative 06/24/18 06/24/18 05:00 05:00 WBC 3.4 L D RBC 2.70 L Hgb 8.3 L Hct 24.8 L MCV 91.9 MCH 30.8 MCHC 33.6 RDW 14.2 Plt Count 146 L MPV 9.5 Prelim Diff (Auto) Manual diff required WBC Differential Manual diff final Seg Neuts % (Manual) 49 Band Neuts % (Manual) 8 H Lymphocytes % (Manual) 20 Monocytes % (Manual) 12 H Eosinophils % (Manual) 3 Basophils % (Manual) Metamyelocytes % (Man) Myelocytes % (Man) 7 H Promyelocytes % (Man) 1 H Abs Neuts (Manual) 2.2 Differential Comment . Toxic Granulation Dohle Bodies Platelet Estimate Low L Platelet Morphology Normal Sodium 145 Potassium 3.2 L Chloride 113 H Carbon Dioxide 23.7 Anion Gap 8 BUN 4 L Creatinine 0.69 Estimated GFR 86 L Random Glucose 87 Calcium 8.0 L Total Bilirubin 0.1 L AST 9 L ALT 14 Alkaline Phosphatase 97 Total Protein 5.8 L Albumin 2.6 L Stl C.difficile Tox PCR St C. diff Tox Epid 027 Microbiology 06/22/18 17:50 Blood - Peripheral Aerobic Blood Culture - Preliminary No growth in 1 day 06/22/18 17:50 Blood - Peripheral Anaerobic Blood Culture - Preliminary No growth in 1 day 06/22/18 17:40 Blood - Peripheral Aerobic Blood Culture - Preliminary No growth in 1 day 06/22/18 17:40 Blood - Peripheral Anaerobic Blood Culture - Preliminary No growth in 1 day Assessment and Plan - Assessment (1) Diverticulitis Code(s): K57.92 - Diverticulitis of intestine, part unspecified, without perforation or abscess without bleeding Status: Acute Plan: 1. breast cancer undergoing chemotherapy. on third cycle. 2. neutropenic fever. 3. diverticulitis Pt undergoing chemotherapy and now presents with neutropenic fever and left lower quadrant pain and diarrhea. CT evaluation shows evidence for sigmoid diverticulosis and therefore the concern is for diverticulitis with stranding and inflammatory bowel change in this location. discussed with her oncologist Dr Geraldine Small. recent gcsf. No fevers in past 24hrs. pain levels much improved. diarrhea neg for cdiff advance diet to soft/nutritional supplements neutropenic precautions ivf . replace kcl cont levaquin/flagyl. dvt prophylaxis. Pt eager for dc home later today...await oncology reevaluation. (2) Neutropenic fever Code(s): D70.9 - Neutropenia, unspecified; R50.81 - Fever presenting with conditions classified elsewhere Status: Acute (3) Breast cancer in female Code(s): C50.919 - Malignant neoplasm of unspecified site of unspecified female breast Status: Acute (3) Breast cancer in female Qualifiers: Laterality: left
--- NOTE | 2018-06-24 09:49 | P.PNONC ---
Subjective Interval history: Afebrile Patient resting in bed in no obvious distress Reports the diarrhea began after she drank salty broth on her meal trays States she feels well Hoping to go home today Objective Vital Signs/Intake & Output: Vital Signs 06/23/18 12:00 06/23/18 16:00 06/23/18 17:40 Temperature 99.0 F 98.8 F 98.6 F Pulse Rate 73 68 68 Respiratory Rate 16 16 18 Blood Pressure 97/55 L 100/58 L 122/66 Pulse Oximetry 96 97 98 06/23/18 20:00 06/24/18 00:00 06/24/18 04:00 Temperature 98.0 F 98.2 F 98.3 F Pulse Rate 70 66 74 Respiratory Rate 18 16 18 Blood Pressure 126/69 97/55 L 109/66 Pulse Oximetry 100 97 96 06/24/18 08:23 Temperature 98.3 F Pulse Rate 68 Respiratory Rate 16 Blood Pressure 120/53 L Pulse Oximetry 100 Intake & Output 06/23/18 06/24/18 06/24/18 18:59 06:59 18:59 Intake Total 2920 / 2920 1200 / 1200 Output Total 200 / 200 Balance 2720 / 2720 1200 / 1200 Intake: IV 2200 / 2200 1200 / 1200 NS Inj 1,000 ML @ 100 mls/hr IV 2000 / 2000 1000 / 1000 .CONT .Q10H MAJOR Rx#:[id number] Levaquin 500 mg Premix Inj 500 100 / 100 mg In 100 ml @ 100 mls/hr IV. SIG Q24H MAJOR Rx#:[id number] Flagyl 500 MG Inj 100 ML @ 100 200 / 200 100 / 100 mls/hr IV.SIG Q8H MAJOR Rx#: [id number] Oral 720 / 720 Output: Urine 200 / 200 Other: # Voids 3 Date of Last Bowel Movement 06/23/18 06/23/18 06/24/18 # Bowel Movements 2 # Incontinent Bowel Movements 3 Result Diagrams: 06/24/18 05:00 06/24/18 05:00 Laboratory Results: Laboratory Results - last 24 hr 06/23/18 06/23/18 06/24/18 07:30 19:30 05:00 WBC 3.4 L D RBC 2.70 L Hgb 8.3 L Hct 24.8 L MCV 91.9 MCH 30.8 MCHC 33.6 RDW 14.2 Plt Count 146 L MPV 9.5 Prelim Diff (Auto) Manual diff required WBC Differential Manual diff final Manual diff final Seg Neuts % (Manual) 26 49 Band Neuts % (Manual) 19 H 8 H Lymphocytes % (Manual) 36 20 Monocytes % (Manual) 10 H 12 H Eosinophils % (Manual) 3 Basophils % (Manual) 5 H Metamyelocytes % (Man) 1 Myelocytes % (Man) 2 H 7 H Promyelocytes % (Man) 1 H 1 H Abs Neuts (Manual) 0.9 L 2.2 Differential Comment . Toxic Granulation 2+ H Dohle Bodies Present H Platelet Estimate Normal Low L Platelet Morphology Normal Normal Sodium Potassium Chloride Carbon Dioxide Anion Gap BUN Creatinine Estimated GFR Random Glucose Calcium Total Bilirubin AST ALT Alkaline Phosphatase Total Protein Albumin Stl C.difficile Tox PCR Negative St C. diff Tox Epid 027 Negative 06/24/18 05:00 WBC RBC Hgb Hct MCV MCH MCHC RDW Plt Count MPV Prelim Diff (Auto) WBC Differential Seg Neuts % (Manual) Band Neuts % (Manual) Lymphocytes % (Manual) Monocytes % (Manual) Eosinophils % (Manual) Basophils % (Manual) Metamyelocytes % (Man) Myelocytes % (Man) Promyelocytes % (Man) Abs Neuts (Manual) Differential Comment Toxic Granulation Dohle Bodies Platelet Estimate Platelet Morphology Sodium 145 Potassium 3.2 L Chloride 113 H Carbon Dioxide 23.7 Anion Gap 8 BUN 4 L Creatinine 0.69 Estimated GFR 86 L Random Glucose 87 Calcium 8.0 L Total Bilirubin 0.1 L AST 9 L ALT 14 Alkaline Phosphatase 97 Total Protein 5.8 L Albumin 2.6 L Stl C.difficile Tox PCR St C. diff Tox Epid 027 Culture Results: Microbiology 06/22/18 17:50 Aerobic Blood Culture - Preliminary Blood - Peripheral No growth in 1 day Anaerobic Blood Culture - Preliminary No growth in 1 day 06/22/18 17:40 Aerobic Blood Culture - Preliminary Blood - Peripheral No growth in 1 day Anaerobic Blood Culture - Preliminary No growth in 1 day Medications: Active Medications Generic Name Dose Route Start Last Admin Trade Name Freq PRN Reason Stop Dose Admin Acetaminophen 650 mg 06/23/18 14:53 06/23/18 16:16 Tylenol PO 650 mg Q4H PRN Administration pain 1-10, fever Sodium Chloride 1,000 mls @ 100 mls/hr 06/22/18 21:00 06/24/18 04:56 Ns Inj IV.CONT 100 mls/hr .Q10H MAJOR Administration Levofloxacin/Dextrose 500 mg in 100 mls @ 100 mls/hr 06/23/18 05:00 06/24/18 06:28 Levaquin 500 Mg Premix Inj IV.SIG Infused Q24H MAJOR Infusion Metronidazole/Sodium Chloride 100 mls @ 100 mls/hr 06/23/18 06:00 06/24/18 06 :30 Flagyl 500 Mg Inj IV.SIG 100 mls/hr Q8H MAJOR Administration Objective Remarks: GENERAL: Older female sitting up in bed watching TV in no obvious distress SKIN: Warm and dry. HEAD: Normocephalic. Alopecia EYES: No scleral icterus. No injection or drainage. NECK: Supple, trachea midline. No JVD or lymphadenopathy. CARDIOVASCULAR: Regular rate and rhythm without murmurs. RESPIRATORY: Breath sounds equal bilaterally. No accessory muscle use. GASTROINTESTINAL: Abdomen soft. Mildly tender to left lower quadrant. EXTREMITIES: No cyanosis, or edema. MUSCULOSKELETAL: Adequate muscle tone. NEUROLOGICAL: No obvious focal deficit. Awake, alert, and oriented x3. Assessment/Plan - Plan 63-year-old female with diagnosis of poorly differentiated stage IIa ductal carcinoma. She was found to be 7% ER positive. She has high risk Oncotype DX. She is receiving Adriamycin and Cytoxan outpatient and received her third cycle on June 14. The patient was admitted with abdominal pain and fever and was found to have diverticulitis in the proximal sigmoid colon. 1. The patient has had increased bowel movements. Per her report these did not begin until after she drank salty broth. C. difficile is negative. 2. CBC shows that she is no longer neutropenic. She did have growth factor support after chemotherapy. - Attending Statement The exam, history, and the medical decision-making described in the above note were completed with the assistance of the mid-level provider. I reviewed and agree with the findings presented. I attest that I had a [id number] encounter with the patient on the same day, and personally performed and documented my assessment and findings in the medical record. Patient still has 5 watery diarrhea this morning. She is not drinking enough fluid because she does not light soda or colored beverages. She denies any abdominal cramp. Neutropenia has resolved. She remains afebrile. Recommend keeping her for 1 more day and continue IV fluid hydration. Hopefully can be discharged tomorrow if she is able to drink adequate fluid.
[2018-06-25] MEDS: Levofloxacin 500 mg Premix Inj 500 MG/100 ML PIGGYBACK IV.SIG SCH (05:00)
[2018-06-25] MEDS: Sod Chloride 0.9% Inj 1,000 ML IV.CONT SCH (05:04)
[2018-06-25 05:51] LABS: Baso % (Auto) 1.2 % (0.0-2.0); Eos % (Auto) 0.9 % (0.0-4.0); Hematocrit 25.3 % (35.0-46.0); Hemoglobin 8.4 gm/dL (11.6-15.3); Lymph # (Auto) 0.7 th/mm3 (1.0-4.8); Lymph % (Auto) 16.7 % (9.0-44.0); Mean Corpuscular HGB Conc 33.2 % (32.0-36.0); Mean Corpuscular Hemoglobin 30.5 pg (27.0-34.0); Mean Corpuscular Volume 91.9 fL (80.0-100.0); Mean Platelet Volume 9.5 fL (7.0-11.0); Mono # (Auto) 0.5 th/mm3 (0.0-0.9); Mono % (Auto) 12.4 % (0.0-8.0); Neut # (Auto) 2.8 th/mm3 (1.8-7.7); Neut % (Auto) 68.8 % (16.0-70.0); Platelet Count 147 th/mm3 (150-450); Red Blood Count 2.76 mil/mm3 (4.00-5.30); Red Cell Distribution Width 14.6 % (11.6-17.2); White Blood Count 4.1 th/mm3 (4.0-11.0)
[2018-06-25 06:51] LABS: Anion Gap 10 meq/L (5-15); Blood Urea Nitrogen 3 mg/dL (7-18); Carbon Dioxide 21.3 meq/L (21.0-32.0); Chloride 113 meq/L (98-107); Glomerular Filtration Rate Greater Than 89 mL/min (>89); Glucose,Random 94 mg/dL (74-106); Potassium 3.7 meq/L (3.5-5.1); Sodium 144 meq/L (136-145)
--- NOTE | 2018-06-25 08:32 | P.PNIM ---
Subjective Interval history: no pain. no vomiting. diarrhea resolved in chair eager for dc. jose food. Physical Exam Vital signs: Vital Signs 06/24/18 12:00 06/24/18 16:00 06/24/18 20:00 Temperature 98.7 F 98.4 F 97.5 F L Pulse Rate 71 69 77 Respiratory Rate 16 16 16 Blood Pressure 138/66 130/74 127/67 Pulse Oximetry 99 100 06/25/18 00:00 06/25/18 04:00 Temperature 98.4 F 98.7 F Pulse Rate 76 Respiratory Rate 16 16 Blood Pressure 117/62 102/59 L Pulse Oximetry 95 96 Intake & Output 06/24/18 06/25/18 06/25/18 18:59 06:59 18:59 Intake Total 1200 / 1200 1300 / 1300 Balance 1200 / 1200 1300 / 1300 Intake: IV 1200 / 1200 1300 / 1300 NS Inj 1,000 ML @ 100 mls/hr IV 1000 / 1000 1000 / 1000 .CONT .Q10H MAJOR Rx#:[id number] Levaquin 500 mg Premix Inj 500 100 / 100 mg In 100 ml @ 100 mls/hr IV. SIG Q24H MAJOR Rx#:[id number] Flagyl 500 MG Inj 100 ML @ 100 200 / 200 200 / 200 mls/hr IV.SIG Q8H MAJOR Rx#: [id number] Other: # Voids 5 Date of Last Bowel Movement 06/24/18 06/24/18 # Bowel Movements 4 0 heart reg lung cta abd s/nt ext no edema Results - Labs CBC & Chem 7: 06/25/18 05:00 06/25/18 05:00 Laboratory Results - last 24 hr 06/25/18 06/25/18 05:00 05:00 WBC 4.1 RBC 2.76 L Hgb 8.4 L Hct 25.3 L MCV 91.9 MCH 30.5 MCHC 33.2 RDW 14.6 Plt Count 147 L MPV 9.5 Prelim Diff (Auto) Slide review pending Neut % (Auto) 68.8 Lymph % (Auto) 16.7 Lipscomb % (Auto) 12.4 H Eos % (Auto) 0.9 Baso % (Auto) 1.2 Neut # (Auto) 2.8 Lymph # (Auto) 0.7 L [place]comb # (Auto) 0.5 Eos # (Auto) 0.0 Baso # (Auto) 0.0 Differential Comment . Sodium 144 Potassium 3.7 Chloride 113 H Carbon Dioxide 21.3 Anion Gap 10 BUN 3 L Creatinine 0.65 Estimated GFR Greater than 89 Random Glucose 94 Calcium 8.0 L Microbiology 06/22/18 17:50 Blood - Peripheral Aerobic Blood Culture - Preliminary No growth in 2 days 06/22/18 17:50 Blood - Peripheral Anaerobic Blood Culture - Preliminary No growth in 2 days 06/22/18 17:40 Blood - Peripheral Aerobic Blood Culture - Preliminary No growth in 2 days 06/22/18 17:40 Blood - Peripheral Anaerobic Blood Culture - Preliminary No growth in 2 days Assessment and Plan - Assessment (1) Diverticulitis Code(s): K57.92 - Diverticulitis of intestine, part unspecified, without perforation or abscess without bleeding Status: Acute Plan: 1. breast cancer undergoing chemotherapy. on third cycle. 2. neutropenic fever. 3. diverticulitis Pt undergoing chemotherapy and now presents with neutropenic fever and left lower quadrant pain and diarrhea. CT evaluation shows evidence for sigmoid diverticulosis and therefore the concern is for diverticulitis with stranding and inflammatory bowel change in this location. discussed with her oncologist Dr Geraldine Small. recent gcsf. No fevers. pain levels much improved. diarrhea neg for cdiff. diarrhea resolved. advanced diet to soft/nutritional supplements...tolerating. no vomiting neutropenic precautions removed. cont levaquin/flagyl on dc f/u Dr Small..no chemo Tuesday and f/u with Dr Small for rescheduling. dvt prophylaxis. (2) Neutropenic fever Code(s): D70.9 - Neutropenia, unspecified; R50.81 - Fever presenting with conditions classified elsewhere Status: Acute (3) Breast cancer in female Code(s): C50.919 - Malignant neoplasm of unspecified site of unspecified female breast Status: Acute (3) Breast cancer in female Qualifiers: Laterality: left
[2018-06-25 08:38] LABS: Dohle Bodies Present; Lymphocytes 19 % (9-44); Metamyelocytes 5 % (0-1); Monocytes 6 % (0-8); Myelocytes 7 % (0-0); Path Slide Review N; Platelet Morphology Normal (Normal); Promyelocyte 2 % (0-0); Toxic Granulation 2+
--- NOTE | 2018-06-25 09:20 | P.PNONC ---
Subjective Interval history: Afebrile Patient reports her bowel movements are no longer watery Reports that she is only had one bowel movement since midnight Anxious to go home Hoping to take a break from chemo this week Objective Vital Signs/Intake & Output: Vital Signs 06/24/18 12:00 06/24/18 16:00 06/24/18 20:00 Temperature 98.7 F 98.4 F 97.5 F L Pulse Rate 71 69 77 Respiratory Rate 16 16 16 Blood Pressure 138/66 130/74 127/67 Pulse Oximetry 99 100 06/25/18 00:00 06/25/18 04:00 Temperature 98.4 F 98.7 F Pulse Rate 76 Respiratory Rate 16 16 Blood Pressure 117/62 102/59 L Pulse Oximetry 95 96 Intake & Output 06/24/18 06/25/18 06/25/18 18:59 06:59 18:59 Intake Total 1200 / 1200 1300 / 1300 Balance 1200 / 1200 1300 / 1300 Intake: IV 1200 / 1200 1300 / 1300 NS Inj 1,000 ML @ 100 mls/hr IV 1000 / 1000 1000 / 1000 .CONT .Q10H MAJOR Rx#:[id number] Levaquin 500 mg Premix Inj 500 100 / 100 mg In 100 ml @ 100 mls/hr IV. SIG Q24H MAJOR Rx#:[id number] Flagyl 500 MG Inj 100 ML @ 100 200 / 200 200 / 200 mls/hr IV.SIG Q8H MAJOR Rx#: [id number] Other: # Voids 5 Date of Last Bowel Movement 06/24/18 06/24/18 # Bowel Movements 4 0 Result Diagrams: 06/25/18 05:00 06/25/18 05:00 Laboratory Results: Laboratory Results - last 24 hr 06/25/18 06/25/18 05:00 05:00 WBC 4.1 RBC 2.76 L Hgb 8.4 L Hct 25.3 L MCV 91.9 MCH 30.5 MCHC 33.2 RDW 14.6 Plt Count 147 L MPV 9.5 Prelim Diff (Auto) Slide review pending Neut % (Auto) 68.8 Lymph % (Auto) 16.7 [place] % (Auto) 12.4 H Eos % (Auto) 0.9 Baso % (Auto) 1.2 Neut # (Auto) 2.8 Lymph # (Auto) 0.7 L [place] # (Auto) 0.5 Eos # (Auto) 0.0 Baso # (Auto) 0.0 WBC Differential Manual diff final Seg Neuts % (Manual) 52 Band Neuts % (Manual) 8 H Lymphocytes % (Manual) 19 Monocytes % (Manual) 6 Basophils % (Manual) 1 Metamyelocytes % (Man) 5 H Myelocytes % (Man) 7 H Promyelocytes % (Man) 2 H Abs Neuts (Manual) 3.0 Differential Comment . Toxic Granulation 2+ H Dohle Bodies Present H Platelet Morphology Normal Sodium 144 Potassium 3.7 Chloride 113 H Carbon Dioxide 21.3 Anion Gap 10 BUN 3 L Creatinine 0.65 Estimated GFR Greater than 89 Random Glucose 94 Calcium 8.0 L Culture Results: Microbiology 06/22/18 17:50 Aerobic Blood Culture - Preliminary Blood - Peripheral No growth in 2 days Anaerobic Blood Culture - Preliminary No growth in 2 days 06/22/18 17:40 Aerobic Blood Culture - Preliminary Blood - Peripheral No growth in 2 days Anaerobic Blood Culture - Preliminary No growth in 2 days Medications: Active Medications Generic Name Dose Route Start Last Admin Trade Name Freq PRN Reason Stop Dose Admin Acetaminophen 650 mg 06/23/18 14:53 06/23/18 16:16 Tylenol PO 650 mg Q4H PRN Administration pain 1-10, fever Sodium Chloride 1,000 mls @ 100 mls/hr 06/22/18 21:00 06/25/18 05:04 Ns Inj IV.CONT 100 mls/hr .Q10H MAJOR Administration Levofloxacin/Dextrose 500 mg in 100 mls @ 100 mls/hr 06/23/18 05:00 06/25/18 05:55 Levaquin 500 Mg Premix Inj IV.SIG Infused Q24H MAJOR Infusion Metronidazole/Sodium Chloride 100 mls @ 100 mls/hr 06/23/18 06:00 06/25/18 06 :39 Flagyl 500 Mg Inj IV.SIG Infused Q8H MAJOR Infusion Objective Remarks: GENERAL: Older female sitting up in chair at bedside watching TV in no obvious distress SKIN: Warm and dry. HEAD: Normocephalic. Alopecia EYES: No scleral icterus. No injection or drainage. NECK: Supple, trachea midline. No JVD or lymphadenopathy. CARDIOVASCULAR: Regular rate and rhythm without murmurs. RESPIRATORY: Breath sounds equal bilaterally. No accessory muscle use. GASTROINTESTINAL: Abdomen soft. Mildly tender to left lower quadrant. EXTREMITIES: No cyanosis, or edema. MUSCULOSKELETAL: Adequate muscle tone. NEUROLOGICAL: No obvious focal deficit. Awake, alert, and oriented x3. Assessment/Plan - Plan 63-year-old female with diagnosis of poorly differentiated stage IIa ductal carcinoma. She was found to be 7% ER positive. She has high risk Oncotype DX. She is receiving Adriamycin and Cytoxan outpatient and received her third cycle on June 14. The patient was admitted with abdominal pain and fever and was found to have diverticulitis in the proximal sigmoid colon. 1. Patient feeling much better with decreased frequency of bowel movements. She has an appointment on Tuesday of this week for chemotherapy however she is requesting to take a break this week. I have discussed with patient that this would be fine however she will need to call the office tomorrow to reschedule her appointment. Clear for discharge from oncology standpoint.
== END 2018-06-25 10:42 | disposition home or self-care (01) ==
LOC: NEPC 16:15 → INTOOBSV 19:12 → NEDA 19:12 → H7ONC 22:10 → NEDA 22:42 → HCIS 06-23 16:55 → HCIN 06-24 05:09
PROVIDERS: ADMIT Hospitalist; ATTEND Hospitalist